=== PATIENT | female | born 1995 | race Caucasian/White ===

== ENCOUNTER 2021-06-13 08:58 | Emergency (ER) | payer BC, OTHER ==
[~2021-06-13] VITALS: Ht 172.7 cm; Wt 125.5 kg
[2021-06-13] MEDS ORDERED: ONDA4TAB6 (09:09)
[2021-06-13] MEDS ORDERED: NS 1,000 ML IV ONE (09:40)
[2021-06-13] MEDS ORDERED: ONDANSETRON 4MG/2ML VIAL IV ONE (10:00)
[2021-06-13 10:20] LABS: BASO % 0.2 % (0.0-1.0); EOS # 0.1 10^3/uL (0.0-0.5); EOS % 1.5 % (0.0-3.0); HEMATOCRIT 38.4 % (36.0-47.0); HEMOGLOBIN 13.1 g/dl (12.0-15.5); LYMPH # 1.6 10^3/uL (1.5-5.0); LYMPH % 19.6 % (24.0-44.0); MEAN CORPUSCULAR HEMOGLOBIN 29.4 pg (27.0-33.0); MEAN CORPUSCULAR HGB CONC 34.1 g/dl (32.0-36.5); MEAN CORPUSCULAR VOLUME 86.3 fl (80.0-96.0); MONO # 0.5 10^3/uL (0.0-0.8); MONO % 6.2 % (2.0-8.0); NEUTROPHILS # 5.9 10^3/uL (1.5-8.5); NEUTROPHILS % 72.3 % (36.0-66.0); PLATELET COUNT, AUTOMATED 179 10^3/uL (150-450); RED BLOOD COUNT 4.45 10^6/uL (4.00-5.40); WHITE BLOOD COUNT 8.1 10^3/uL (4.0-10.0)
[2021-06-13 10:40] LABS: ALBUMIN 3.5 GM/DL (3.2-5.2); ALT/SGPT 22 U/L (12-78); BILIRUBIN,DIRECT 0.2 MG/DL (0.0-0.2); BILIRUBIN,TOTAL 0.6 MG/DL (0.2-1.0); BLOOD UREA NITROGEN 6 MG/DL (7-18); CALCIUM LEVEL 8.9 MG/DL (8.5-10.1); CARBON DIOXIDE LEVEL 23 MEQ/L (21-32); CHLORIDE LEVEL 110 MEQ/L (98-107); CREATININE FOR GFR 0.63 MG/DL (0.55-1.30); GLOMERULAR FILTRATION RATE > 60.0 (>60); GLUCOSE, FASTING 101 MG/DL (70-100); LIPASE 56 U/L (73-393); POTASSIUM SERUM 3.6 MEQ/L (3.5-5.1); SODIUM LEVEL 139 MEQ/L (136-145); TOTAL PROTEIN 6.5 GM/DL (6.4-8.2)
[2021-06-13] MEDS ORDERED: SUCRALFATE SUSP 1GM/10ML UD PO ONE (11:00)
[2021-06-13] MEDS ORDERED: SUCR1SS PO (11:21)
[2021-06-13 11:41] VITALS: BP 124/63
== END 2021-06-13 11:43 | disposition home or self-care (01) ==
LOC: M ED 08:58
DX: O21.9 Vomiting of pregnancy, unspecified (principal); Z3A.00 Weeks of gestation of pregnancy not specified
CPT/HCPCS: 80048; 80076; 83690; 85025; 96361; 96374; 99284; J2405

== ENCOUNTER → 2021-07-17 | Outpatient (CLI) | payer BC ==
[~2021-07-17] MED LIST: ONDA4TAB6; SUCR1SS PO
[2021-07-17 11:51] LABS: HEMATOCRIT 36.7 % (36.0-47.0); HEMOGLOBIN 12.4 g/dl (12.0-15.5); MEAN CORPUSCULAR HEMOGLOBIN 29.7 pg (27.0-33.0); MEAN CORPUSCULAR HGB CONC 33.8 g/dl (32.0-36.5); PLATELET COUNT, AUTOMATED 182 10^3/uL (150-450); RED BLOOD COUNT 4.17 10^6/uL (4.00-5.40); WHITE BLOOD COUNT 10.2 10^3/uL (4.0-10.0)
[2021-07-17 13:41] LABS: GC DNA AMPLIFICATION NEGATIVE (NEGATIVE)
[2021-07-18 11:55] LABS: HEPATITIS C VIRUS ABY INDEX 0.1 INDEX (<0.8); HIV 1&2 SCREEN CENTAUR NEGATIVE (NEGATIVE)
== END ==
LOC: M LAB 10:35
PROVIDERS: ATTEND Specialist
DX: Z34.90 Encounter for supervision of normal pregnancy, unspecified, unspecified trimester (principal); Z3A.18 18 weeks gestation of pregnancy

== ENCOUNTER → 2021-07-28 | Outpatient (CLI) | payer BC, OTHER | LOC: M WHC 11:28 | PROVIDERS: ATTEND Obstetrics & Gynecology | DX: Z36.89 Encounter for other specified antenatal screening (principal); Z3A.20 20 weeks gestation of pregnancy ==

== ENCOUNTER → 2021-08-22 | Outpatient (CLI) | payer BC, OTHER | LOC: M WHC 09:57 | PROVIDERS: ATTEND Obstetrics & Gynecology | DX: Z36.2 Encounter for other antenatal screening follow-up (principal); Z3A.24 24 weeks gestation of pregnancy ==

== ENCOUNTER → 2021-09-15 | Outpatient (CLI) | payer BC, OTHER ==
[2021-09-15 14:04] LABS: HEMATOCRIT 33.8 % (36.0-47.0); MEAN CORPUSCULAR HEMOGLOBIN 28.6 pg (27.0-33.0); MEAN CORPUSCULAR HGB CONC 32.5 g/dl (32.0-36.5); MEAN CORPUSCULAR VOLUME 87.8 fl (80.0-96.0); PLATELET COUNT, AUTOMATED 187 10^3/uL (150-450); RED BLOOD COUNT 3.85 10^6/uL (4.00-5.40); WHITE BLOOD COUNT 7.5 10^3/uL (4.0-10.0)
[2021-09-15 15:42] LABS: GC DNA AMPLIFICATION NEGATIVE (NEGATIVE)
== END ==
LOC: M PLALAB 09:07
PROVIDERS: ATTEND Obstetrics & Gynecology
DX: Z34.92 Encounter for supervision of normal pregnancy, unspecified, second trimester (principal)

== ENCOUNTER 2021-10-28 10:28 | Outpatient (CLI) | payer BC, OTHER ==
[~2021-10-28] VITALS: Ht 175.3 cm; Wt 132.4 kg
[2021-10-28] MEDS ORDERED: TUMS750C5 PO (10:51)
[2021-10-28 10:54] VITALS: BP 123/66
[2021-10-28] MEDS ORDERED: HOME MED LIST COMPLETE! XX SCH (11:10)
== END 2021-10-28 12:04 | disposition home or self-care (01) ==
LOC: M LDO 10:28
PROVIDERS: ATTEND Obstetrics & Gynecology
DX: O36.8130 Decreased fetal movements, third trimester, not applicable or unspecified (principal); Z3A.33 33 weeks gestation of pregnancy
CPT/HCPCS: 59025; G0378; G0463

== ENCOUNTER → 2021-11-17 | Outpatient (REF) | payer BC, OTHER ==
[~2021-11-17] MED LIST changes: +TUMS750C5 PO
== END ==
LOC: M SFHCWAGY 13:01
PROVIDERS: ATTEND Obstetrics & Gynecology
DX: Z36.85 Encounter for antenatal screening for Streptococcus B (principal); Z3A.36 36 weeks gestation of pregnancy

== ENCOUNTER 2021-12-02 13:17 | Inpatient (IN) | payer BC, OTHER ==
[~2021-12-02] VITALS: Ht 175.3 cm; Wt 133.4 kg
[2021-12-02] VITALS (13 sets, daily range): BP systolic 112–164; BP diastolic 56–99
[2021-12-02 14:36] LABS: HEMATOCRIT 32.8 % (36.0-47.0); HEMOGLOBIN 10.9 g/dl (12.0-15.5); MEAN CORPUSCULAR HEMOGLOBIN 26.8 pg (27.0-33.0); MEAN CORPUSCULAR HGB CONC 33.2 g/dl (32.0-36.5); MEAN CORPUSCULAR VOLUME 80.6 fl (80.0-96.0); PLATELET COUNT, AUTOMATED 174 10^3/uL (150-450); RED BLOOD COUNT 4.07 10^6/uL (4.00-5.40); WHITE BLOOD COUNT 9.2 10^3/uL (4.0-10.0)
[2021-12-02 15:07] LABS: ALT/SGPT 8 U/L (12-78); BILIRUBIN,TOTAL 0.3 MG/DL (0.2-1.0); CREATININE FOR GFR 0.68 MG/DL (0.55-1.30); GLOMERULAR FILTRATION RATE > 60.0 (>60); LDH LACTATE DEHYDROGENASE 132 U/L (84-246); URIC ACID 5.1 MG/DL (2.6-6.0)
[2021-12-02] MEDS ORDERED: COLA100C5 PO (15:09)
[2021-12-02 15:15] LABS: TOTAL PROTEIN,RANDOM URINE 32.5 MG/DL (0.0-12.0)
[2021-12-02] MEDS: miSOPROStol 50MCG 1/2 TABLET SL SCH ×2 (17:12→21:10)
[2021-12-02] MEDS ORDERED: HOME MED LIST COMPLETE! XX SCH (19:10)
[2021-12-02] MEDS ORDERED: ACETAMINOPHEN 500 MG TAB PO ONE (21:15)
[2021-12-03] VITALS (52 sets, daily range): BP systolic 87–143; BP diastolic 51–93
[2021-12-03] MEDS: miSOPROStol 50MCG 1/2 TABLET SL SCH ×2 (01:21→08:09)
[2021-12-03] MEDS ORDERED: ONDANSETRON 4MG ORAL DISINTEGRATING TAB PO ONE (03:55)
[2021-12-03] MEDS ORDERED: ACETAMINOPHEN 500 MG TAB PO PRN (08:25)
[2021-12-03] MEDS: ONDANSETRON 4MG 2ML VIAL IV SCH ×2 (08:34→13:00)
[2021-12-03] MEDS ORDERED: miSOPROStol 50MCG 1/2 TABLET PV ONE (12:40)
[2021-12-03] MEDS: ONDANSETRON 4MG 2ML VIAL IV PRN ×2 (16:29→20:29)
[2021-12-03] MEDS ORDERED: OXYTOCIN DRIP 30 UNITS in IV 1 EA IV SCH (16:40)
[2021-12-03] MEDS: LR 1,000 ML IV SCH ×2 (16:46→18:19)
[2021-12-03] MEDS ORDERED: FENTANYL 2MCG/ML ROPIVACAINE 0.2% IN 0.9% NACL 100ML IVBAG As Ordered ONE (18:07)
[2021-12-03] MEDS ORDERED: diphenhydrAMINE 50MG/ML VIAL (J1200) IV PRN (18:30)
[2021-12-03] MEDS ORDERED: LR 500 ML IV PRN (18:30)
[2021-12-03] MEDS ORDERED: NALOXONE INJ 0.4MG/1ML VIAL (J2310 PER 1MG) IV PRN (18:30)
[2021-12-03] MEDS ORDERED: EPIDURAL/PCA KEYS XX PRN (18:30)
[2021-12-03] MEDS ORDERED: ONDANSETRON 4MG 2ML VIAL IV PRN (18:30)
[2021-12-03] MEDS: FENTANYL/ROPIVACAINE/NACL BAG 100 ML EPIDURAL SCH (19:04)
[2021-12-03] MEDS: ePHEDrine SULFATE 25 MG/5 ML(5MG/ML) SYRINGE IVP PRN ×3 (21:17→21:25)
[2021-12-04] VITALS (22 sets, daily range): BP systolic 100–140; BP diastolic 55–86
[2021-12-04] MEDS: LR 1,000 ML IV SCH ×3 (00:58→23:51)
[2021-12-04] MEDS: ONDANSETRON 4MG 2ML VIAL IV PRN ×2 (02:09→11:56)
[2021-12-04] MEDS: FENTANYL/ROPIVACAINE/NACL BAG 100 ML EPIDURAL SCH ×2 (02:33→08:48)
[2021-12-04] MEDS: PRENATAL VITAMINS CHEWABLE TABLET PO SCH (09:00)
[2021-12-04] MEDS ORDERED: ceFAZolin SOD 2 GM in IV 1 EA IV ONE (11:50)
[2021-12-04] MEDS ORDERED: AZITHROMYCIN INJ 500 MG, VIAL MATE ADAPTER 1 EACH in NS 250 ML IV ONE (11:50)
[2021-12-04] MEDS ORDERED: BICITRA 30ML SOLN UDC PO ONE (11:50)
[2021-12-04] MEDS ORDERED: LIDOCAINE 2% W/EPINEPHRINE 20ML VIAL **PRES FREE As Ordered ONE (11:58)
[2021-12-04] MEDS ORDERED: MORPHINE PRES-FREE INJ 10 MG/10 ML VIAL As Ordered ONE (12:01)
[2021-12-04] MEDS ORDERED: OXYTOCIN 30 UNITS IN 0.9% NaCl 500ML IV BAG (J2590) As Ordered ONE ×2 (12:02→13:46)
[2021-12-04] MEDS ORDERED: ACETAMINOPHEN 1000MG 100ML IV BTL (OFIRMEV) (J0131 PER 10MG) As Ordered ONE (12:31)
[2021-12-04] MEDS ORDERED: LIDOCAINE PRES-FREE 2% 10ML AMP As Ordered ONE (12:40)
[2021-12-04] MEDS ORDERED: KETOROLAC 60MG 2ML VIAL As Ordered ONE (12:48)
[2021-12-04 13:22] LABS: CORD GAS ABE V -8.2; CORD GAS O2 SAT V 99.7 %; CORD GAS PH V 7.317 UNITS; CORD GAS PO2 V 138.8 mmHg; CORD GAS TCO2 V 18.1 MEQ/L
[2021-12-04 13:24] LABS: CORD GAS ABE A -7.2; CORD GAS HCO3 A 20.1 MEQ/L; CORD GAS O2 SAT A 65.6 %; CORD GAS PCO2 A 47.5 mmHg; CORD GAS PH A 7.244 UNITS; CORD GAS PO2 A 29.4 mmHg; CORD GAS TCO2 A 21.5 MEQ/L
[2021-12-04] MEDS ORDERED: METOCLOPRAMIDE INJ 10MG/2ML VIAL (J2765 PER 1) IV PRN ×2 (13:25)
[2021-12-04] MEDS ORDERED: fentaNYL 100 MCG/2 ML INJECTION IV PRN (13:25)
[2021-12-04] MEDS ORDERED: PERCOCET 5MG/325MG TAB PO PRN ×2 (13:25)
[2021-12-04] MEDS ORDERED: LR 1,000 ML IV SCH (13:25)
[2021-12-04] MEDS ORDERED: SIMETHICONE 80MG CHEW TAB PO PRN (13:25)
[2021-12-04] MEDS ORDERED: OXYTOCIN DRIP 30 UNITS in IV 1 EA IV SCH (13:25)
[2021-12-04] MEDS ORDERED: ONDANSETRON 4MG ORAL DISINTEGRATING TAB PO PRN (13:25)
[2021-12-04] MEDS ORDERED: ONDANSETRON 4MG 2ML VIAL IV PRN (13:25)
[2021-12-04] MEDS ORDERED: RHOGAM 300 MCG (1500 IU) INJ (J2790) IM SCH (13:25)
[2021-12-04] MEDS ORDERED: **NOTE PATIENT COMMENT** MISC XX SCH (13:25)
[2021-12-04] MEDS ORDERED: diphenhydrAMINE 50MG/ML VIAL (J1200) IV PRN (13:25)
[2021-12-04] MEDS ORDERED: NALOXONE INJ 0.4MG/1ML VIAL (J2310 PER 1MG) IV PRN ×2 (13:25)
[2021-12-04] MEDS ORDERED: DOCUSATE SODIUM 100MG CAPSULE PO PRN (13:25)
[2021-12-04] MEDS: SLF 3 ML SYR IV SCH ×2 (13:25→21:25)
[2021-12-04] MEDS ORDERED: oxyCODONE 5MG TAB PO PRN (13:25)
[2021-12-04] MEDS: KETOROLAC 30 MG/ML 1ML VIAL IV SCH (19:20)
[2021-12-04] MEDS ORDERED: LR 500 ML IV ONE (19:40)
[2021-12-04] MEDS ORDERED: OXYC1TAB23 PO (20:59)
[2021-12-04] MEDS ORDERED: IBUP80TA PO (20:59)
[2021-12-05] MEDS: KETOROLAC 30 MG/ML 1ML VIAL IV SCH ×2 (01:01→06:09)
[2021-12-05] MEDS: SLF 3 ML SYR IV SCH (05:25)
[2021-12-05 06:00] VITALS: BP 138/72
[2021-12-05 07:24] LABS: HEMATOCRIT 29.2 % (36.0-47.0); HEMOGLOBIN 9.2 g/dl (12.0-15.5); MEAN CORPUSCULAR HEMOGLOBIN 26.4 pg (27.0-33.0); MEAN CORPUSCULAR HGB CONC 31.5 g/dl (32.0-36.5); MEAN CORPUSCULAR VOLUME 83.7 fl (80.0-96.0); PLATELET COUNT, AUTOMATED 156 10^3/uL (150-450); RED BLOOD COUNT 3.49 10^6/uL (4.00-5.40); WHITE BLOOD COUNT 10.3 10^3/uL (4.0-10.0)
[2021-12-05] MEDS: PRENATAL VITAMINS CHEWABLE TABLET PO SCH (08:25)
[2021-12-05] MEDS ORDERED: INFLUENZA QUADRIVALENT PF VACCINE 0.5ML SYRINGE IM.IMMUN ONE (09:00)
[2021-12-05 10:00] VITALS: BP 109/55
[2021-12-05] MEDS: LR 1,000 ML IV SCH (10:05)
[2021-12-05 14:00] VITALS: BP 132/67
[2021-12-05] MEDS: IBUPROFEN 800 MG TAB PO SCH ×2 (14:08→23:50)
[2021-12-05 18:00] VITALS: BP 130/67
[2021-12-05 22:00] VITALS: BP 134/65
[2021-12-06 06:00] VITALS: BP 134/83
[2021-12-06] MEDS: IBUPROFEN 800 MG TAB PO SCH (06:03)
[2021-12-06] MEDS ORDERED: INFLUENZA QUADRIVALENT PF VACCINE 0.5ML SYRINGE IM.IMMUN ONE (09:00)
[2021-12-06] MEDS ORDERED: MEASLES,MUMPS,RUBELLA VACCINE INJ (MMR-II) (90707) SC.IMMUN ONE (09:00)
[2021-12-06] MEDS: PRENATAL VITAMINS CHEWABLE TABLET PO SCH (09:23)
[2021-12-06 10:00] VITALS: BP 121/76
[2021-12-06] MEDS ORDERED: COLA100C5 PO (10:16)
== END 2021-12-06 12:33 | disposition home or self-care (01) | DRG 540 ==
LOC: M LDO 13:17 → M LDI 15:52 → M OBS 12-04 15:08
PROVIDERS: ADMIT Specialist; ATTEND Specialist
PROC: 3E0P7VZ Introduction of Hormone into Female Reproductive, Via Natural or Artificial Opening (ICD-10-PCS; 2021-12-03)
PROC: 3E0DXGC Introduction of Other Therapeutic Substance into Mouth and Pharynx, External Approach (ICD-10-PCS; 2021-12-03)
PROC: 10D00Z1 Extraction of Products of Conception, Low, Open Approach (ICD-10-PCS; principal; 2021-12-04)
DX: O13.4 Gestational [pregnancy-induced] hypertension without significant proteinuria, complicating childbirth (principal); O32.4XX0 Maternal care for high head at term, not applicable or unspecified; Z37.0 Single live birth; Z3A.38 38 weeks gestation of pregnancy

== ENCOUNTER → 2022-08-01 | Outpatient (REF) | payer OTHER ==
[~2022-08-01] MED LIST changes: +COLA100C5 PO; +IBUP80TA PO; +OXYC1TAB23 PO
== END ==
LOC: M PLALAB 13:18
PROVIDERS: ATTEND Obstetrics & Gynecology
DX: Z12.4 Encounter for screening for malignant neoplasm of cervix (principal)
CPT/HCPCS: G0123; G0463

== ENCOUNTER 2023-05-28 07:11 | Emergency (ER) | payer OTHER ==
[~2023-05-28] VITALS: Ht 172.7 cm; Wt 130.3 kg
[2023-05-28 07:16] VITALS: BP 129/72; TEMP 98.3; O2SAT 96
== END 2023-05-28 10:08 | disposition left against medical advice (07) ==
LOC: M ED 07:11
DX: Z53.21 Procedure and treatment not carried out due to patient leaving prior to being seen by health care provider (principal)

== ENCOUNTER → 2023-08-18 | Outpatient (CLI) | payer OTHER ==
[~2023-08-18] MED LIST changes: +ONDA-282; -ONDA4TAB6
[2023-08-18 11:47] LABS: HEMATOCRIT 36.1 % (36.0-47.0); HEMOGLOBIN 12.1 g/dl (12.0-15.5); MEAN CORPUSCULAR HEMOGLOBIN 28.7 pg (27.0-33.0); MEAN CORPUSCULAR HGB CONC 33.5 g/dl (32.0-36.5); MEAN CORPUSCULAR VOLUME 85.5 fl (80.0-96.0); PLATELET COUNT, AUTOMATED 196 10^3/uL (150-450); RED BLOOD COUNT 4.22 10^6/uL (4.00-5.40); WHITE BLOOD COUNT 6.9 10^3/uL (4.0-10.0)
[2023-08-18 12:32] LABS: HEPATITIS B SURFACE ANTIGEN NEGATIVE (NEGATIVE)
[2023-08-18 12:45] LABS: HIV 1&2 SCREEN NEGATIVE (NEGATIVE)
[2023-08-18 12:54] LABS: HEPATITIS C VIRUS ABY INDEX 0.02 INDEX (<0.8)
[2023-08-18 13:31] LABS: GC DNA AMPLIFICATION NEGATIVE (NEGATIVE)
== END ==
LOC: M LAB 11:00
PROVIDERS: ATTEND Specialist
DX: Z34.81 Encounter for supervision of other normal pregnancy, first trimester (principal)

== ENCOUNTER → 2023-10-25 | Outpatient (CLI) | payer OTHER | LOC: M WHC 07:59 | PROVIDERS: ATTEND Obstetrics & Gynecology | DX: O34.211 Maternal care for low transverse scar from previous cesarean delivery (principal); Z3A.20 20 weeks gestation of pregnancy ==

== ENCOUNTER → 2023-10-26 | Outpatient (CLI) | payer OTHER ==
[2023-10-31 20:32] LABS: ANTI PARVO VIRUS LEVEL IGG 5.2 (<0.9); ANTI PARVO VIRUS LEVEL IgM 0.2 (<0.9)
[2023-10-31 23:07] LABS: PARVOVIRUS B19 QUANT PCR Negative copies/mL (Negative)
== END ==
LOC: M LAB 16:57
PROVIDERS: ATTEND Obstetrics & Gynecology
DX: Z20.828 Contact with and (suspected) exposure to other viral communicable diseases (principal)

== ENCOUNTER 2023-11-09 12:01 | Outpatient (CLI) | payer OTHER ==
[~2023-11-09] VITALS: Ht 175.3 cm; Wt 127.7 kg
[2023-11-09 12:22] VITALS: BP 119/68
[2023-11-09] MEDS ORDERED: MULTTAB20 PO (12:24)
[2023-11-09] MEDS ORDERED: REGL10TA6 PO (12:24)
[2023-11-09] MEDS ORDERED: HOME MED LIST COMPLETE! XX SCH (12:25)
== END 2023-11-09 13:20 | disposition home or self-care (01) ==
LOC: M LDO 12:01
PROVIDERS: ATTEND Obstetrics & Gynecology
DX: O44.02 Complete placenta previa NOS or without hemorrhage, second trimester (principal); O26.852 Spotting complicating pregnancy, second trimester; O26.892 Other specified pregnancy related conditions, second trimester; R25.2 Cramp and spasm; Z3A.21 21 weeks gestation of pregnancy
CPT/HCPCS: 59025; 81001; G0463

== ENCOUNTER 2023-11-12 20:50 | Outpatient (CLI) | payer OTHER ==
[~2023-11-12] VITALS: Ht 175.3 cm; Wt 127.2 kg
[~2023-11-12 20:50] MED LIST changes: +MULTTAB20 PO; +REGL10TA6 PO
[2023-11-12 21:09] VITALS: BP 118/86
[2023-11-12 21:25] VITALS: BP 118/65
[2023-11-12 21:30] LABS: HEMATOCRIT 32.2 % (36.0-47.0); HEMOGLOBIN 10.7 g/dl (12.0-15.5); MEAN CORPUSCULAR HEMOGLOBIN 29.2 pg (27.0-33.0); MEAN CORPUSCULAR HGB CONC 33.2 g/dl (32.0-36.5); MEAN CORPUSCULAR VOLUME 87.7 fl (80.0-96.0); PLATELET COUNT, AUTOMATED 190 10^3/uL (150-450); RED BLOOD COUNT 3.67 10^6/uL (4.00-5.40); WHITE BLOOD COUNT 9.5 10^3/uL (4.0-10.0)
[2023-11-12 21:40] VITALS: BP 110/57
[2023-11-12 21:47] LABS: TOTAL PROTEIN,RANDOM URINE 13.4 MG/DL (0.0-14.0)
[2023-11-12 21:55] VITALS: BP 106/58
[2023-11-12 22:01] LABS: URIC ACID 4.7 MG/DL (3.1-7.8)
[2023-11-12 22:03] LABS: LDH LACTATE DEHYDROGENASE 131 U/L (120-246)
[2023-11-12 22:04] LABS: ALT/SGPT < 9 U/L (7.0-40); AST/SGOT < 8 U/L (<34); BILIRUBIN,TOTAL 0.3 MG/DL (0.3-1.2); CREATININE FOR GFR 0.65 MG/DL (0.55-1.30); GLOMERULAR FILTRATION RATE > 60.0 (>60)
[2023-11-12 22:10] VITALS: BP 112/67
[2023-11-12 22:15] LABS: CREATININE,RANDOM URINE 263.4 MG/DL
== END 2023-11-12 22:16 | disposition home or self-care (01) ==
LOC: M LDO 20:50
PROVIDERS: ATTEND Advanced Practice Midwife
DX: O26.892 Other specified pregnancy related conditions, second trimester (principal); O44.02 Complete placenta previa NOS or without hemorrhage, second trimester; O99.352 Diseases of the nervous system complicating pregnancy, second trimester; G43.509 Persistent migraine aura without cerebral infarction, not intractable, without status migrainosus; O99.212 Obesity complicating pregnancy, second trimester; O34.211 Maternal care for low transverse scar from previous cesarean delivery; R03.0 Elevated blood-pressure reading, without diagnosis of hypertension; E66.01 Morbid (severe) obesity due to excess calories; Z3A.22 22 weeks gestation of pregnancy
CPT/HCPCS: 36415; 59025; 82247; 82570; 83615; 84156; 84450; 84460; 84550; 85027; G0463

== ENCOUNTER → 2023-11-19 | Outpatient (CLI) | payer OTHER | LOC: M WHC 07:06 | PROVIDERS: ATTEND Obstetrics & Gynecology | DX: O44.20 Partial placenta previa NOS or without hemorrhage, unspecified trimester (principal) ==